=== PATIENT | female | born 1970 | race Caucasian/White ===

== ENCOUNTER 2018-06-14 05:55 | Inpatient (IN) | payer OTHER ==
[2018-06-14] MEDS ORDERED: CITRIC ACID/SODIUM CITRATE 30 ML UNIT-DOSE CUP PO ONE ×2 (07:07→07:54)
[2018-06-14 07:15] VITALS: BMI 34.5
[2018-06-14] MEDS ORDERED: ELECTROLYTE-148 SOLN 500 ML IV ONE (07:54)
--- NOTE | 2018-06-14 08:01 | HP ---
Past Medical History - Admission Chief Complaint: 39 weeks gestation / AMA History of Present Illness: 48 yo , @ 39 weeks gestation, EDC 06/21/18, is pre op for primary . History Source: Patient Limitations to Obtaining History: No Limitations - Past Medical History ...: 1 ...Para: 0 ...Term: 0 ...: 0 ...Spon : 0 ...Induced : 0 ...Multiple Gestation: 0 ...LMP: 10/16/17 ...EDC by Dates: 07/23/18 ...EDC by Sono: 06/21/18 - Past Surgical History Past Surgical History: Yes: None Hx Myomectomy: No Hx Transabdominal Cerclage: No - Smoking History Smoking history: Never smoked Have you smoked in the past 12 months: No Aproximately how many cigarettes per day: 0 - Alcohol/Substance Use Hx Alcohol Use: No - Social History History of Recent Travel: No Home Medications - Allergies Allergies/Adverse Reactions: Allergies Allergy/AdvReac Type Severity Reaction Status Date / Time No Known Allergies Allergy Verified 03/24/18 17:30 - Home Medications Home Medications: Ambulatory Orders Pnv No.95/Ferrous Fum/Folic AC [ Vitamin Tablet] 1 each PO DAILY Family Disease History - Family Disease History Family History: Unremarkable Review of Systems - Review of Systems Constitutional: reports: No Symptoms Eyes: reports: No Symptoms HENT: reports: No Symptoms Neck: reports: No Symptoms Cardiovascular: reports: No Symptoms Respiratory: reports: No Symptoms Gastrointestinal: reports: No Symptoms Genitourinary: reports: No Symptoms Breasts: reports: No Symptoms Reported Musculoskeletal: reports: No Symptoms Integumentary: reports: No Symptoms Neurological: reports: No Symptoms Endocrine: reports: No Symptoms Hematology/Lymphatic: reports: No Symptoms Psychiatric: reports: No Symptoms Pain Intensity: 0 Physical Exam - Maternity Vital Signs: Vital Signs Temperature 98.2 F 06/14/18 07:08 Pulse Rate 92 H 06/14/18 07:08 Respiratory Rate 20 06/14/18 07:08 Blood Pressure 153/95 06/14/18 07:08 O2 Sat by Pulse Oximetry (%) Constitutional: Yes: Well Nourished Eyes: Yes: Conjunctiva Clear HENT: Yes: Atraumatic Neck: Yes: Supple Cardiovascular: Yes: Regular Rate and Rhythm Lungs: Clear to auscultation - Abdominal Exam/OB Number of Fetuses: Single Presentation: Vertex - Physical Exam Extremities: Yes: WNL ...Motor Strength: WNL Psychiatric: Yes: Alert, Oriented Problem List - Problems (1) 39 weeks gestation of Code(s): Z3A.39 - 39 WEEKS GESTATION OF (2) Advanced maternal age (AMA) in Code(s): GKK7205 - Assessment/Plan 39 weeks gestation Advance maternal age Pre op for primary Consent signed Anesthesia to see patient
[2018-06-14] MEDS ORDERED: morphine SULFATE/Preservative Free 0.5 MG/ML (1cc Syringe) ONE (08:42)
[2018-06-14] MEDS ORDERED: ePHEDrine SULFATE 50 MG/1 ML AMPULE ONE (08:43)
[2018-06-14] MEDS ORDERED: OXYTOCIN 20 UNITS in 0.9% NS 20 UNIT/1,000 ML INFUS.BAG IV ONE ×2 (09:05→11:49)
[2018-06-14 10:24] LABS: VENOUS PC02 59.2 mmHg (38-52); VENOUS PH 7.28 (7.32-7.42); VENOUS PO2 10.8 mmHg (28-48)
[2018-06-14] MEDS ORDERED: METHYLERGONOVINE MALEATE 0.2 MG/1 ML AMP IM PRN (10:26)
--- NOTE | 2018-06-14 10:34 | OP ---
Operative Note - Note: Operative Date: 06/14/18 Pre-Operative Diagnosis: 39 weeks gestation / Transverse lie Operation: Primary Low transverse / Myomectomy Findings: Anterior placenta / Fetus in transverse lie / Fibroid uterus Surgeon: Ivy Salinas Communications Equipment Operator: Venita Aguirre Anesthesia: Spinal Specimens Removed: Placenta / Fibroid Estimated Blood Loss (mls): 700
[2018-06-14] MEDS: OXYTOCIN 20 UNITS in 0.9% NS 20 UNIT/1,000 ML INFUS.BAG IV SCH ×2 (11:30→21:32)
--- NOTE | 2018-06-14 12:34 | SURG ---
Surgery Stitcher Tape Controlled Machine Note Stitcher Tape Controlled Machine: Venita Aguirre PA-C Date of Service: 06/14/18 Diagnosis: 39 weeks gestation / Transverse lie Procedure: Primary Low transverse / Myomectomy I was present for the entirety of the operative procedure. For further detail, please refer to operative report. Visit type - Case Type Case Type: Scheduled - Emergency Emergency Visit: No - New patient This patient is new to me today: Yes Date on this admission: 06/14/18
[2018-06-14] MEDS ORDERED: IBUPROFEN 800 MG/8 ML IJ IVPB PRN (19:49)
[2018-06-14] MEDS: FERROUS SO4 325 MG TABLET (FP) PO SCH (21:50)
[2018-06-15] MEDS: OXYTOCIN 20 UNITS in 0.9% NS 20 UNIT/1,000 ML INFUS.BAG IV SCH (06:11)
[2018-06-15 08:16] LABS: BASO % 0.3 % (0-2.0); EOS % 0.3 % (0-4.5); HEMATOCRIT 30.1 % (32.4-45.2); HEMOGLOBIN 10.2 GM/dL (10.7-15.3); LYMPH % 17.4 % (8-40); MCH 30.9 pg (25.7-33.7); MCHC 33.9 g/dl (32.0-36.0); MEAN CELL VOLUME 91.3 fl (80-96); MEAN PLT VOLUME 9.5 fl (7.5-11.1); MONO % 6.6 % (3.8-10.2); NEUT % 75.4 % (42.8-82.8); PLATELET COUNT 200 K/MM3 (134-434); RDW 15.1 % (11.6-15.6); WHITE BLOOD COUNT 9.8 K/mm3 (4.0-10.0)
[2018-06-15] MEDS: FERROUS SO4 325 MG TABLET (FP) PO SCH ×3 (10:03→21:22)
[2018-06-15] MEDS: PRENATAL VITAMINS W/ FOLIC ACID TABLET (FP) PO SCH (10:03)
[2018-06-15] MEDS: IBUPROFEN 600 MG TABLET (FP) PO PRN ×3 (10:04→20:59)
[2018-06-15] MEDS: oxyCODONE HCL 5 MG TABLET PO PRN ×3 (10:04→20:58)
[2018-06-15] MEDS: SIMETHICONE 80 MG TAB.CHEW (FP) PO PRN ×3 (10:05→20:59)
[2018-06-15] MEDS ORDERED: BISACODYL 10 MG SUPP.RECT RC PRN (10:26)
--- NOTE | 2018-06-15 11:02 | OP ---
DATE OF OPERATION: 06/14/2018 PREOPERATIVE DIAGNOSIS: A 39-week gestation of , advanced maternal age , transverse lie. PROCEDURE: Primary low transverse section and myomectomy. POSTOPERATIVE DIAGNOSIS: A 39-week gestation, advanced maternal age, transverse lie, and fibroid uterus. ANESTHESIA: Spinal. COMPLICATIONS: Hemorrhagia. ESTIMATED BLOOD LOSS: 700 mL. DESCRIPTION OF PROCEDURE: The patient was taken to the operating room where spinal anesthesia was administered. The patient was then prepped in proper sterile fashion. A Pfannenstiel skin incision was made and carried down to the underlying layer of fascia. The fascia was incised in the midline and extended laterally. The superior aspect of the fascial incision was then grasped with a Zelalem clamp, elevated, and the rectus muscles dissected off bluntly. The rectus muscle was then in the midline. The peritoneum identified and entered sharply with the Metzenbaum scissors. The peritoneal incision was extended superiorly and inferiorly with good visualization of the bladder. The vesicouterine was then grabbed with a pickup and entered sharply with Metzenbaum scissors. This incision was extended laterally and a bladder flap created digitally. The lower uterine segment was incised. The fetus was found in transverse lie. It was turned to vertex. The placenta was found to be anteriorly with significant amount of bleeding. Also, a large myoma noted at the lower uterine segment. After a couple of attempts, the head was then delivered. Nose and mouth were suctioned and the cord clamped and cut. The infant was handed to the waiting mail clerks supervisor. The placenta was removed manually. The uterus was exteriorized and cleared of all clots and debris. The fibroid noted at the lower uterine segment was removed to allow proper closure of the lower uterine segment. An incision was made over the fibroid. Using the Metzenbaum scissors and the Bovie cautery, the fibroid was dissected of the wall of the uterus and pulled out. There was a 6-cm x 6-cm fibroid that was removed and sent to Pathology. The uterus was then cleared of all clots and debris. The lower uterine segment incision was repaired using 0 Biosyn in a running, locked fashion. A 2nd layer of the same suture was used as a means to provide excellent hemostasis. The incision at the fibroid site was closed in layers using 2-0 Vicryl and 2-0 Biosyn. The pelvis was then completely irrigated. The uterus was returned to the abdomen. The peritoneum was closed using 2-0 Biosyn. The fascia was reapproximated using 0 Vicryl in a running fashion. The skin was closed in a subcuticular fashion using 3-0 Vicryl. The patient tolerated the procedure well. The patient was taken to PACU in stable condition. PATHOLOGY: Placenta and fibroid. Michelle STUBBS/[id number] MTDD
--- NOTE | 2018-06-15 18:33 | PN ---
Post Progress Note - Subjective Subjective: 48 yo Para 1, status post primary , seen and evaluated. Doing well; she c/o mild incision pain. Post Day: 1 Type of Delivery: Primary C/S Vital Signs: Vital Signs Temperature 97.3 F L 06/15/18 07:45 Pulse Rate 92 H 06/15/18 07:45 Respiratory Rate 20 06/15/18 10:00 Blood Pressure 113/67 06/15/18 07:45 O2 Sat by Pulse Oximetry (%) 98 06/14/18 11:45 Breast Exam: Yes: Soft Uterus: Yes: Fundus Firm Incision: Yes: Dressing dry and intact Abdomen/GI: Yes: Abdomen soft, Tolerating PO Lochia: Yes: Rubra Lochia, amount: Small Extremities: Yes: Calves non-tender Perineum: Yes: Intact Activity: Ambulating - Labs Labs: CBC WBC 9.8 K/mm3 (4.0-10.0) 06/15/18 07:30 RBC 3.30 M/mm3 (3.60-5.2) L 06/15/18 07:30 Hgb 10.2 GM/dL (10.7-15.3) L 06/15/18 07:30 Hct 30.1 % (32.4-45.2) L D 06/15/18 07:30 MCV 91.3 fl (80-96) 06/15/18 07:30 MCH 30.9 pg (25.7-33.7) 06/15/18 07:30 MCHC 33.9 g/dl (32.0-36.0) 06/15/18 07:30 RDW 15.1 % (11.6-15.6) 06/15/18 07:30 Plt Count 200 K/MM3 (134-434) 06/15/18 07:30 MPV 9.5 fl (7.5-11.1) 06/15/18 07:30 Absolute Neuts (auto) 7.4 K/mm3 (1.5-8.0) 06/15/18 07:30 Neutrophils % 75.4 % (42.8-82.8) D 06/15/18 07:30 Lymphocytes % 17.4 % (8-40) D 06/15/18 07:30 Monocytes % 6.6 % (3.8-10.2) 06/15/18 07:30 Eosinophils % 0.3 % (0-4.5) 06/15/18 07:30 Basophils % 0.3 % (0-2.0) 06/15/18 07:30 Nucleated RBC % 0 % (0-0) 06/15/18 07:30 Problem List - Problems (1) 39 weeks gestation of Code(s): Z3A.39 - 39 WEEKS GESTATION OF (2) Advanced maternal age (AMA) in Code(s): GQF2420 - (3) Status post primary low transverse section Code(s): Z98.891 - HISTORY OF UTERINE SCAR FROM PREVIOUS SURGERY Assessment/Plan Status post primary Ambulation Analgesia as needed Continue routine post op care
--- NOTE | 2018-06-15 19:42 | PN ---
Post Progress Note - Subjective Subjective: Pt seen/evaluated and doing well. Pain controlled with medications. OOB. Voiding. Denies CP/SOB/F/C/[place]. Type of Delivery: Primary C/S Vital Signs: Vital Signs Temperature 97.3 F L 06/15/18 07:45 Pulse Rate 92 H 06/15/18 07:45 Respiratory Rate 20 06/15/18 10:00 Blood Pressure 113/67 06/15/18 07:45 O2 Sat by Pulse Oximetry (%) 98 06/14/18 11:45 Uterus: Yes: Fundus Firm Abdomen/GI: Yes: Abdomen soft, Tolerating PO. No: Abdominal Distention, Tender Lochia, amount: Small Perineum: Yes: Intact Activity: Ambulating - Labs Labs: CBC WBC 9.8 K/mm3 (4.0-10.0) 06/15/18 07:30 RBC 3.30 M/mm3 (3.60-5.2) L 06/15/18 07:30 Hgb 10.2 GM/dL (10.7-15.3) L 06/15/18 07:30 Hct 30.1 % (32.4-45.2) L D 06/15/18 07:30 MCV 91.3 fl (80-96) 06/15/18 07:30 MCH 30.9 pg (25.7-33.7) 06/15/18 07:30 MCHC 33.9 g/dl (32.0-36.0) 06/15/18 07:30 RDW 15.1 % (11.6-15.6) 06/15/18 07:30 Plt Count 200 K/MM3 (134-434) 06/15/18 07:30 MPV 9.5 fl (7.5-11.1) 06/15/18 07:30 Absolute Neuts (auto) 7.4 K/mm3 (1.5-8.0) 06/15/18 07:30 Neutrophils % 75.4 % (42.8-82.8) D 06/15/18 07:30 Lymphocytes % 17.4 % (8-40) D 06/15/18 07:30 Monocytes % 6.6 % (3.8-10.2) 06/15/18 07:30 Eosinophils % 0.3 % (0-4.5) 06/15/18 07:30 Basophils % 0.3 % (0-2.0) 06/15/18 07:30 Nucleated RBC % 0 % (0-0) 06/15/18 07:30 Problem List - Problems (1) S/P myomectomy Code(s): Z98.890 - OTHER SPECIFIED POSTPROCEDURAL STATES (2) Status post myomectomy Code(s): Z98.890 - OTHER SPECIFIED POSTPROCEDURAL STATES (3) delivery delivered Code(s): O82 - ENCOUNTER FOR DELIVERY WITHOUT INDICATION Assessment/Plan 48 y/o POD # 1 s/p section and myomectomy AFVSS Hgb 10.2 - pt without signs/sx of anemia regular diet PO pain meds advance as normal routine care
[2018-06-16] MEDS: SIMETHICONE 80 MG TAB.CHEW (FP) PO PRN ×2 (06:25→13:38)
[2018-06-16] MEDS: oxyCODONE HCL 5 MG TABLET PO PRN ×2 (06:25→13:38)
[2018-06-16] MEDS: IBUPROFEN 600 MG TABLET (FP) PO PRN ×2 (06:26→13:39)
[2018-06-16] MEDS: PRENATAL VITAMINS W/ FOLIC ACID TABLET (FP) PO SCH (09:03)
[2018-06-16] MEDS: FERROUS SO4 325 MG TABLET (FP) PO SCH (09:03)
--- NOTE | 2018-06-16 21:02 | PN ---
Post Progress Note - Subjective Subjective: status post primary . Doing well. Post Day: 2 Type of Delivery: Primary C/S Vital Signs: Vital Signs Temperature 98.4 F 06/16/18 07:40 Pulse Rate 95 H 06/16/18 07:40 Respiratory Rate 18 06/16/18 07:40 Blood Pressure 114/73 06/16/18 07:40 O2 Sat by Pulse Oximetry (%) 98 06/14/18 11:45 Breast Exam: Yes: Soft Uterus: Yes: Fundus Firm Incision: Yes: Sutures intact Abdomen/GI: Yes: Abdomen soft, Tolerating PO Lochia: Yes: Rubra Lochia, amount: Small Extremities: Yes: Calves non-tender Activity: Ambulating - Labs Labs: CBC WBC 9.8 K/mm3 (4.0-10.0) 06/15/18 07:30 RBC 3.30 M/mm3 (3.60-5.2) L 06/15/18 07:30 Hgb 10.2 GM/dL (10.7-15.3) L 06/15/18 07:30 Hct 30.1 % (32.4-45.2) L D 06/15/18 07:30 MCV 91.3 fl (80-96) 06/15/18 07:30 MCH 30.9 pg (25.7-33.7) 06/15/18 07:30 MCHC 33.9 g/dl (32.0-36.0) 06/15/18 07:30 RDW 15.1 % (11.6-15.6) 06/15/18 07:30 Plt Count 200 K/MM3 (134-434) 06/15/18 07:30 MPV 9.5 fl (7.5-11.1) 06/15/18 07:30 Absolute Neuts (auto) 7.4 K/mm3 (1.5-8.0) 06/15/18 07:30 Neutrophils % 75.4 % (42.8-82.8) D 06/15/18 07:30 Lymphocytes % 17.4 % (8-40) D 06/15/18 07:30 Monocytes % 6.6 % (3.8-10.2) 06/15/18 07:30 Eosinophils % 0.3 % (0-4.5) 06/15/18 07:30 Basophils % 0.3 % (0-2.0) 06/15/18 07:30 Nucleated RBC % 0 % (0-0) 06/15/18 07:30 Problem List - Problems (1) 39 weeks gestation of Code(s): Z3A.39 - 39 WEEKS GESTATION OF (2) Advanced maternal age (AMA) in Code(s): UTD2713 - Assessment/Plan Status post Stable Ambulation Analgesia as needed Continue post op care
[2018-06-17] MEDS: FERROUS SO4 325 MG TABLET (FP) PO SCH ×3 (00:28→21:30)
[2018-06-17] MEDS: IBUPROFEN 600 MG TABLET (FP) PO PRN ×3 (00:28→17:13)
[2018-06-17] MEDS: oxyCODONE HCL 5 MG TABLET PO PRN ×3 (00:29→17:14)
--- NOTE | 2018-06-17 07:19 | PN ---
Post Note - Post Date of Delivery: 06/14/18 Post Day: 3 Vital Signs: Vital Signs - 24 hr 06/16/18 06/16/18 07:40 21:18 Temperature 98.4 F 97.9 F Pulse Rate 95 H 88 Respiratory 18 18 Rate Blood Pressure 114/73 125/75 - Subjective Subjective: No Complaints - Objective Breast: Not engorged Abdomen: Soft, Non-tender Uterus: Fundus firm Vagina: Scant lochia Extremities: Non-tender - Assessment/Plan (1) delivery delivered Assessment: Other (POD 3) Plan: Routine Care
[2018-06-17] MEDS: SIMETHICONE 80 MG TAB.CHEW (FP) PO PRN ×2 (08:00→17:14)
[2018-06-17 10:24] LABS: EOS % 4.6 % (0-4.5); HEMATOCRIT 28.5 % (32.4-45.2); HEMOGLOBIN 9.6 GM/dL (10.7-15.3); MCH 30.8 pg (25.7-33.7); MCHC 33.7 g/dl (32.0-36.0); MEAN CELL VOLUME 91.1 fl (80-96); MEAN PLT VOLUME 9.7 fl (7.5-11.1); MONO % 5.2 % (3.8-10.2); NEUT % 66.2 % (42.8-82.8); PLATELET COUNT 249 K/MM3 (134-434); RBC 3.13 M/mm3 (3.60-5.2); WHITE BLOOD COUNT 7.3 K/mm3 (4.0-10.0)
[2018-06-17] MEDS: PRENATAL VITAMINS W/ FOLIC ACID TABLET (FP) PO SCH (10:59)
[2018-06-17] MEDS ORDERED: oxyCODONE HCL 5 MG TABLET ONE (17:04)
[2018-06-17 22:23] VITALS: TEMP 98.2
[2018-06-18] MEDS: IBUPROFEN 600 MG TABLET (FP) PO PRN ×2 (03:24→10:22)
[2018-06-18] MEDS: oxyCODONE HCL 5 MG TABLET PO PRN ×2 (03:25→10:23)
--- NOTE | 2018-06-18 08:26 | DS ---
Physical Exam-ASSOCIATE STORE MANAGER Vital Signs: Vital Signs Temperature 98.2 F 06/17/18 21:00 Pulse Rate 86 06/17/18 21:00 Respiratory Rate 18 06/17/18 21:00 Blood Pressure 127/88 06/17/18 21:00 O2 Sat by Pulse Oximetry (%) 98 06/14/18 11:45 Constitutional: Yes: Well Nourished, No Distress Labs: CBC, BMP 06/17/18 08:10 Delivery - Delivery Section: Low Flap Transverse Type of Anesthesia: Spinal Episiotomy/Laceration: None EBL (cc): 700 Delivery, Single - Stages of Labor Date of Delivery: 06/14/18 Time of Delivery: 09:40 Time Placenta Delivered: 09:41 - Condition of Infant Certified Alcohol Drug Counselor/Limehouse Worker Present: Yes Name: Jitendra Barlow Gender: Male Weight: 7 lb 11 oz Position: Left, OT Total Hours ROM (Hrs/Mins): 3 min - 1 Minute Total Score: 7 5 Minutes Total Score: 9 - Feeding Plan Initial Plan: Exclusive throughout hospitalization Discharge Summary Reason For Visit: ADMIT C/SECTION Current Active Problems 39 weeks gestation of (Acute) Advanced maternal age (AMA) in (Acute) delivery delivered (Acute) S/P myomectomy (Acute) Status post myomectomy (Acute) Status post primary low transverse section (Acute) Procedures: Principal: Section Hospital Course: Unremarkable Condition: Good - Instructions - Home Medications Comprehensive Discharge Medication List: Ambulatory Orders Pnv No.95/Ferrous Fum/Folic AC [ Vitamin Tablet] 1 each PO DAILY
[2018-06-18] MEDS: PRENATAL VITAMINS W/ FOLIC ACID TABLET (FP) PO SCH (10:18)
[2018-06-18] MEDS: FERROUS SO4 325 MG TABLET (FP) PO SCH (10:18)
[2018-06-18] MEDS: SIMETHICONE 80 MG TAB.CHEW (FP) PO PRN (10:22)
[2018-06-18 10:58] VITALS: BP 126/83; PULSE 93
--- NOTE | 2018-06-26 16:10 | PATH ---
Surgical Pathology Report Patient Name: MYA YBARRA [facility]. Rec. #: [id number] /Age/Gender: 1970 (Age: 48) / F Account: [id number] Location: [facility] OBS/LIVE OUT NANNY Taken: 06/14/2018 Received: 06/15/2018 Reported: 06/26/2018 Physicians: Ivy Salinas M.D. Specimen(s) Received A: PLACENTA B: FIBROID Clinical History , at 39 weeks for primary due to transverse lie of the baby and myomectomy Final Diagnosis A. PLACENTA, SECTION: 409 G THIRD TRIMESTER PLACENTA WITH TRIVASCULAR UMBILICAL CORD AND UNREMARKABLE PLACENTAL MEMBRANES. B. FIBROIDS, MYOMECTOMY: LEIOMYOMA WITH DEGENERATIVE CHANGES. Electronically Signed Nikole Busch M.D. Gross Description A. The specimen is received fresh labeled placenta and is a 409 gram, 24.0 x 18.0 x 1.3 cm. placenta with attached membranes and umbilical cord. The attached membranes are traylor, translucent with focal opacities and insert marginally. The umbilical cord measures 27 cm. in length and averages 1.2 cm. in diameter. The cord inserts eccentrically, 1.5 cm. to the nearest margin. No true knots or strictures are identified. Cut surface of the umbilical cord reveals 3 vessels. The surface is lopez-blue with minimal fibrin deposition and appropriate caliber vessels. The maternal surface is red-brown with focal defects. Sectioning reveals red-brown, spongy parenchyma. No lesions are identified. Painter Set sections are submitted in three cassettes as follows: 1- membrane rolls and umbilical cord; 2-3- full thickness sections of placenta. B. Received in formalin labeled "fibroid," is a 133 g, 7.0 x 7.0 x 4.7 cm fibroid. Sectioning reveals foci of degeneration. Painter Set sections are submitted in 3 cassettes. 06/23/201806/23/2018
== END 2018-06-18 13:45 | disposition home or self-care (01) | DRG 540 ==
LOC: JLDR 05:55 → J3W 12:00
PROVIDERS: ADMIT Obstetrics & Gynecology; ATTEND Obstetrics & Gynecology
PROC: 10D00Z1 Extraction of Products of Conception, Low, Open Approach (ICD-10-PCS; principal; 2018-06-14)
PROC: 0UB90ZZ Excision of Uterus, Open Approach (ICD-10-PCS; 2018-06-14)
DX: O32.2XX0 Maternal care for transverse and oblique lie, not applicable or unspecified (principal); O34.13 Maternal care for benign tumor of corpus uteri, third trimester; D25.9 Leiomyoma of uterus, unspecified; Z3A.39 39 weeks gestation of pregnancy; Z37.0 Single live birth
CPT/HCPCS: 36415; 82803; 85025; 88305-TC; 88307-TC

== ENCOUNTER 2019-12-22 06:02 | Emergency (ER) | payer OTHER ==
[2019-12-22 06:32] VITALS: BMI 30.2
[2019-12-22] MEDS ORDERED: LABETALOL HCL 200 MG TABLET (FP) PO ONE (06:45)
[2019-12-22] MEDS ORDERED: amLODIPine BESYLATE 5 MG TABLET (FP) PO ONE (06:45)
[2019-12-22] MEDS ORDERED: amLODIPine BESYLATE 5 MG TABLET (FP) ONE (06:48)
[2019-12-22] MEDS ORDERED: LABETALOL HCL 100 MG TABLET (FP) ONE (06:48)
--- NOTE | 2019-12-22 06:50 | PDOC ---
Rapid Medical Evaluation Chief Complaint: Palpitations Time Seen by Provider: 12/22/19 06:30 Medical Evaluation: Allergies Allergy/AdvReac Type Severity Reaction Status Date / Time No Known Allergies Allergy Verified 12/22/19 06:28 Vital Signs Temp Pulse Resp BP Pulse Ox 98.5 F 109 H 20 171/109 H 100 12/22/19 06:28 12/22/19 06:28 12/22/19 06:28 12/22/19 06:28 12/22/19 06:28 12/22/19 06:47 Pt states that she woke with palpitations this AM. She is very stressed with COVID, because she lives with her 82 yo mom and her 1 yo child. After child was born, pt had eclampsia and she was placed on labetalol 200mg BID and amlodipine 5mg QAM. Pt is complaint with her meds. She had slight chest pain this AM. Pt admits that she ate salty rice beans and chicken late last night which may be contributing to her elevated BP. 171 systolic on right 168 systolicon left. Normal sinus EKG. Pt will be seen by the day ER team. I administered her AM meds. Discharge Disposition - Discharge Dispostion Last Admission D/C Date: 06/18/18 - Referrals Referrals: Fran Philippe [Primary Care Provider] - - Patient Instructions - Post Discharge Activity
--- NOTE | 2019-12-22 07:33 | PDOC ---
Attending Attestation - Resident Resident Name: Alec Pettit - HPI HPI: 12/23/19 11:48 Pt presents to the ED complaining of palpitations along with tingling of her mouth and hands. The palpitations started this aM, lasted for an hour and spontaneously resolved. She has had intermittent numbness, tingling and pain in her hands since her last year. - Physicial Exam PE: 12/23/19 12:04 Agree with resident exam. Patient is alert and oriented and in no acute distress. CV: rrr no m/r/g Pulm: CTA b/l abdomen: soft, non tender, non distended, without guarding or rebound. Neuro: patient is alert and oriented x 3. CN 2-12 grossly intact. - Medical Decision Making 12/23/19 12:18 Pt presents to the ED complaining of palpitations that have now resolved. EKG shows no evidence of arrythmia. Labs show no electrolyte disturbance. Neurologically intact. Will discharge home with instructions to follow up with PCP and return to the ED for worsening symptoms. Discharge - Discharge Information Problems reviewed: Yes Clinical Impression/Diagnosis: Palpitations Hypertension Qualifiers: Hypertension type: unspecified Qualified Code(s): I10 - Essential (primary) hypertension Condition: Good Disposition: HOME - Follow up/Referral Referrals: Alvino Montano MD [Staff Physician] - Fran Philippe [Primary Care Provider] - Marvin Sykes MD [Staff Physician] - - Patient Discharge Instructions Patient Printed Discharge Instructions: DI for Palpitations, DI for Hand Pain Additional Instructions: You came to the ED because you had palpitations, jaw cramping, and hand pain. We tested your blood, looked at your heart's electrical activity, and took an Xray of your chest. Everything looks normal, so we are sending you home. Often times we do not find a definitive cause in the emergency room. This is one of those times. We have referred you to an orthopedics doctor for your hands, and a vending machine servicer for your palpitations Please follow up with these doctors, contact info in this packet, and your primary care doctor, within five days of leaving the ED. You must return to the emergency room if you have the palpitations again and they are more severe or persist. Also come back if you have any other severe or scary symptoms. We are always here. Print Language: SPA - Post Discharge Activity
--- NOTE | 2019-12-22 08:14 | PDOC ---
History of Present Illness <Jay Pettitel Anabela - Last Filed: 12/22/19 10:23> <MkMervat smith - Last Filed: 12/23/19 11:43> - General Chief Complaint: Palpitations Stated Complaint: JAW CRAMPS Time Seen by Provider: 12/22/19 06:30 - History of Present Illness Initial Comments: 12/22/19 08:09 49yo F w/ h/o HTN p/w 15min episode of palpitations, jaw cramping, and b/l arm cramping this morning. She woke up around 5 with "pounding in my chest, my jaw was cramping, and my arms were too." She went to the kitchen and took a baby ASA and ate some garlic. The sx subsided but she decided to come get examined. Denies any associated symptoms - no CP, SOB, diaphoresis, n/v, coughing/hemoptysis. Denies recent illness or travel. Denies leg pain. Denies new leg swelling. This happened once before a few months ago. She went to her PCP afterward who did an EKG, which was fine. She takes Amlodipine and labetalol for HTN and reports she is compliant with them. (Alec Pettit) Past History - Travel History Traveled outside of the country in the last 30 days: No Close contact w/someone who was outside of country & ill: No - Medical History Asthma: No Cancer: No Cardiac Disorders: No COPD: No Diabetes: No HTN: No Seizures: No Thyroid Disease: No - Surgical History Abdominal Surgery: Yes (C/S last year) Appendectomy: No Cardiac Surgery: No Cholecystectomy: No Gastric Stapling: No GI Surgery: No Lung Surgery: No Neurologic Surgery: No Orthopedic Surgery: No - Family History Family Hx Nuerologic Problems: Sister (CVA), Brother (CVA) - Reproductive History Is Patient Now?: No - Immunization History Immunization Up to Date: Yes (FLU UTD) - Psycho-Social/Smoking History Lives with/in: son Smoking Status: No Smoking History: Never smoked Have you smoked in the past 12 months: No Number of Cigarettes Smoked Daily: 0 Cigars Per Day: 0 Information on smoking cessation initiated: No - Substance Abuse Hx (Audit-C & DAST Scrn) How often the patient has a drink containing alcohol: Never Score: In Men: 4 or > Positive; In Women: 3 or > Positive: 0 Screen Result (Pos requires Nsg. Audit-10AR): Negative In the last yr the pt used illegal drug/Rx for NonMed reason: No Score: Yes response is considered Positive: 0 Screen Result (Positive result requires Nsg. DAST-10): Negative <Alec Pettit - Last Filed: 12/22/19 10:23> <Mervat Terrazas - Last Filed: 12/23/19 11:43> - Medical History Allergies/Adverse Reactions: Allergies Allergy/AdvReac Type Severity Reaction Status Date / Time No Known Allergies Allergy Verified 12/22/19 06:28 Home Medications: Ambulatory Orders Pnv No.95/Ferrous Fum/Folic AC [ Vitamin Tablet] 1 each PO DAILY 1 05/23/17 Review of Systems - Review of Systems Able to Perform ROS?: Yes Is the patient limited Kyrgyz proficient: Yes Constitutional: No: Chills, Diaphoresis, Fever, Weakness HEENTM: Yes: Blurred Vision. No: Throat Pain Respiratory: No: Cough, Shortness of Breath, SOB with Exertion, Productive cough Cardiac (ROS): Yes: Irregular Heart Rate (Palpitatiosn). No: Chest Pain, Edema ABD/GI: No: Constipated, Diarrhea, Nausea, Poor Appetite, Vomiting : Yes: Other (no period in months - has f/u w/ OBGYN) Musculoskeletal: No: Back Pain, Muscle Weakness Integumentary: No: Rash, Sweating Neurological: No: Dizziness Psychiatric: No: Anxiety, Stressors Endocrine: No: Excessive Sweating Hematologic/Lymphatic: No: Blood Clots <Alec Pettit - Last Filed: 12/22/19 10:23> *Physical Exam - Physical Exam General Appearance: Yes: Nourished, Appropriately Dressed, Apparent Distress HEENT: positive: EOMI, LASHELL Neck: positive: Trachea midline Respiratory/Chest: positive: Lungs Clear, Normal Breath Sounds Cardiovascular: positive: Tachycardia, Systolic Murmur Gastrointestinal/Abdominal: positive: Normal Bowel Sounds, Soft. negative: Organomegaly Musculoskeletal: positive: Normal Inspection Extremity: positive: Normal Capillary Refill, Normal Range of Motion Integumentary: positive: Normal Color <Alec Pettit - Last Filed: 12/22/19 10:23> - Vital Signs Last Vital Signs Temp Pulse Resp BP Pulse Ox 98.8 F 87 17 137/90 99 12/22/19 10:33 12/22/19 10:33 12/22/19 10:33 12/22/19 10:33 12/22/19 10:33 Heart Score/ECG Review - History History: Moderately suspicious - Electrocardiogram EKG: Normal - Age Age: 45-65 - ECG Intrepretation Rhythm: Regular Rhythm - Clatonia Clatonia: Normal - P and AR Delta Wave(s) Present: No - QRS Q Wave Present: No - ECG Impressions Normal ECG: Yes Ischemic Changes: No Bradycardia: No <Alec Pettit - Last Filed: 12/22/19 10:23> ED Treatment Course - LABORATORY CBC & Chemistry Diagram: 12/22/19 08:28 12/22/19 08:28 <Alec Pettit - Last Filed: 12/22/19 10:23> - LABORATORY CBC & Chemistry Diagram: 12/22/19 08:28 12/22/19 08:28 <Mervat Terrazas - Last Filed: 12/23/19 11:43> - ADDITIONAL ORDERS Additional order review: 12/22/19 08:28 RBC 4.46 MCV 90.5 MCHC 33.4 RDW 14.7 MPV 8.7 D - Medications Given in the ED: ED Medications Discontinued Medications Generic Name Dose Route Start Last Admin Trade Name Freq PRN Reason Stop Dose Admin Amlodipine Besylate 5 mg 12/22/19 06:45 12/22/19 06:55 Norvasc - PO 12/22/19 06:46 5 mg ONCE ONE Administration Labetalol HCl 200 mg 12/22/19 06:45 12/22/19 06:55 Normodyne - PO 12/22/19 06:46 200 mg ONCE ONE Administration Medical Decision Making <Alec Pettit - Last Filed: 12/22/19 10:23> - Medical Decision Making 12/22/19 08:20 49 yo F w/ h/o HTN has palpitations and cramping CBC and CMP - anemia can cause tachycardia and HTN. Electrolyte disturbance can cause cramping Shes overweight and has HTN and has FHx CVA -> cardiac workup palpitations could be hyper thyroid -> TSH. Is this heart failure? i don't think so but it doesn't hurt to get a BNP. (Alec Pettit) Discharge - Discharge Information Problems reviewed: Yes - Admission No <Alec Pettit - Last Filed: 12/22/19 10:23> <Mervat Terrazas - Last Filed: 12/23/19 11:43> - Discharge Information Clinical Impression/Diagnosis: Palpitations Hypertension Qualifiers: Hypertension type: unspecified Qualified Code(s): I10 - Essential (primary) hypertension Condition: Good Disposition: HOME - Follow up/Referral Referrals: Fran Philippe [Primary Care Provider] - Marvin Sykes MD [Staff Physician] - Alvino Montano MD [Staff Physician] - - Patient Discharge Instructions Patient Printed Discharge Instructions: DI for Palpitations, DI for Hand Pain Additional Instructions: You came to the ED because you had palpitations, jaw cramping, and hand pain. We tested your blood, looked at your heart's electrical activity, and took an Xray of your chest. Everything looks normal, so we are sending you home. Often times we do not find a definitive cause in the emergency room. This is one of those times. We have referred you to an orthopedics doctor for your hands, and a footwear sales representative for your palpitations Please follow up with these doctors, contact info in this packet, and your primary care doctor, within five days of leaving the ED. You must return to the emergency room if you have the palpitations again and they are more severe or persist. Also come back if you have any other severe or scary symptoms. We are always here. Print Language: SPA - Post Discharge Activity
[2019-12-22 09:01] LABS: HEMATOCRIT 40.4 % (32.4-45.2); HEMOGLOBIN 13.5 GM/dL (10.7-15.3); MCH 30.2 pg (25.7-33.7); MCHC 33.4 g/dl (32.0-36.0); MEAN CELL VOLUME 90.5 fl (80-96); MEAN PLT VOLUME 8.7 fl (7.5-11.1); PLATELET COUNT 282 K/MM3 (134-434); RBC 4.46 M/mm3 (3.60-5.2); RDW 14.7 % (11.6-15.6); WHITE BLOOD COUNT 7.1 K/mm3 (4.0-10.0)
[2019-12-22 09:25] LABS: ALK PHOS 79 U/L (45-117); ANION GAP 9 MMOL/L (8-16); BILIRUBIN,TOTAL 0.8 mg/dL (0.2-1); CALCIUM 8.7 mg/dL (8.5-10.1); CHLORIDE 106 mmol/L (98-107); CO2 25 mmol/L (21-32); CREATININE 0.7 mg/dL (0.55-1.3); GLUCOSE,RANDOM 98 mg/dL (74-106); N-TERMINAL BNP 115.9 pg/ml (5-125); POTASSIUM 3.9 mmol/L (3.5-5.1); SGOT/AST 14 U/L (15-37); SGPT/ALT 21 U/L (13-61); SODIUM 140 mmol/L (136-145); TOT PROT 7.3 g/dl (6.4-8.2)
[2019-12-22 10:34] VITALS: BP 137/90; PULSE 87; TEMP 98.8
--- NOTE | 2019-12-22 10:47 | EKG ---
Test Reason : Blood Pressure : / mmHG Vent. Rate : 097 BPM Atrial Rate : 097 BPM P-R Int : 164 ms QRS Dur : 086 ms QT Int : 348 ms P-R-T Axes : 045 050 015 degrees QTc Int : 441 ms NORMAL SINUS RHYTHM NORMAL ECG WHEN COMPARED WITH ECG OF 15-JUL-2013 23:28, NO SIGNIFICANT CHANGE WAS FOUND Confirmed by Fatoumata Romero ([id number]) on 12/22/2019 10:46:39 AM Referred By: Confirmed By:Fatoumata Romero
== END 2019-12-22 11:09 | disposition home or self-care (01) ==
LOC: JER 06:02
DX: R00.2 Palpitations (principal); I10 Essential (primary) hypertension
CPT/HCPCS: 36415; 71046-TC-FY; 80053; 83880; 84443; 84484; 84702; 84703; 85027; 93005; 93010; 99285-25

== ENCOUNTER 2021-07-20 03:45 | Emergency (ER) | payer OTHER ==
[2021-07-20 04:00] VITALS: BMI 31.1
[2021-07-20] MEDS ORDERED: LACTATED RINGERS SOLUTION 1000 ML INFUS.BAG IV ONE (05:42)
[2021-07-20] MEDS ORDERED: AMOX TR/POT CLAV 875MG/125MG TABLETS (FP) PO ONE (06:28)
[2021-07-20 06:33] LABS: BASO % 0.5 % (0-2.0); HEMATOCRIT 42.5 % (32.4-45.2); HEMOGLOBIN 13.9 GM/dL (10.7-15.3); LYMPH % 22.7 % (8-40); MCHC 32.6 g/dl (32.0-36.0); MEAN CELL VOLUME 88.8 fl (80-96); MEAN PLT VOLUME 8.8 fl (7.5-11.1); MONO % 4.4 % (3.8-10.2); NEUT % 71.4 % (42.8-82.8); PLATELET COUNT 313 10^3/uL (134-434); RBC 4.78 M/mm3 (3.60-5.2); RDW 15.4 % (11.6-15.6); WHITE BLOOD COUNT 9.1 K/mm3 (4.0-10.0)
[2021-07-20 06:38] LABS: PH,URINE 6.5 (5.0-8.0); URINE APPEARANCE CLEAR; URINE BILIRUBIN NEGATIVE (NEGATIVE); URINE COLOR YELLOW; URINE GLUCOSE (UA) NEGATIVE (NEGATIVE); URINE KETONE NEGATIVE (NEGATIVE); URINE LEUK ESTERASE NEGATIVE (NEGATIVE); URINE NITRITE NEGATIVE (NEGATIVE); URINE PROTEIN NEGATIVE (NEGATIVE); URINE UROBILINOGEN 0.2 mg/dL (0.2-1.0)
[2021-07-20 06:51] LABS: ALBUMIN 4.2 g/dl (3.4-5.0); BLOOD UREA NITROGEN 12.9 mg/dL (7-18); CALCIUM 8.8 mg/dL (8.5-10.1); MAGNESIUM 2.4 mg/dL (1.8-2.4)
[2021-07-20 06:54] LABS: CREATININE 0.9 mg/dL (0.55-1.3)
[2021-07-20 06:56] LABS: TOT PROT 7.7 g/dl (6.4-8.2)
[2021-07-20 07:07] LABS: INR 1.03 (0.83-1.09); PROTHROMBIN TIME (PATIENT) 11.9 SEC (9.7-13.0)
[2021-07-20 12:01] VITALS: BP 161/99; PULSE 99; TEMP 98.3
== END 2021-07-20 14:04 | disposition home or self-care (01) ==
LOC: JER 03:45
DX: R00.2 Palpitations (principal)
CPT/HCPCS: 36415; 71046-TC-FY; 80053; 81003; 82550; 82553; 83735; 84439; 84443; 84479; 84484; 84703; 85025; 85379; 85610; 87040; 87086; 93005; 93010; 99285-25